=== PATIENT | male | born 1965 | race Caucasian/White ===

== ENCOUNTER 2017-06-22 11:41 | Emergency (ER) | payer SELFPAY ==
--- NOTE | 2017-06-22 12:59 | ER Document Report ---
HPI - HPI Patient complains to provider of: cut left hand Onset: Other - SUPPORT ENGINEER Pain Level: 2 Context: 52 yo male opening can with knife that slipped and cut left mid palm, also injured right hand and thinks that he has some broken bones. Tetanus is current. Associated Symptoms: None Exacerbated by: Movement Relieved by: Denies - ROS ROS below otherwise negative: Yes Systems Reviewed and Negative: Yes All other systems reviewed and negative - MUSCULOSKELETAL Musculoskeletal: REPORTS: Extremity pain - left and right hand Past Medical History - General Information source: Patient - Social History Smoking Status: Current Every Day Smoker Chew tobacco use (# tins/day): No Frequency of alcohol use: Heavy Drug Abuse: None Lives with: Family Family History: Other - adopted Patient has suicidal ideation: No Patient has homicidal ideation: No Pulmonary Medical History: Reports: Hx Bronchitis Renal/ Medical History: Denies: Hx Peritoneal Dialysis GI Medical History: Reports: Hx Gastroesophageal Reflux Disease, Hx Hepatitis - dx 1997 Musculoskeltal Medical History: Reports Hx Arthritis, Reports Hx Musculoskeletal Trauma Psychiatric Medical History: Reports: Hx Attention Deficit Hyperactivity Disorder Traumatic Medical History: Reports: Hx Fractures - rib, facial orbital bone Infectious Medical History: Reports: Hx Hepatitis - dx 1997 Past Surgical History: Reports: Hx Orthopedic Surgery - facial reconstruction, right 5th finger, Hx Tonsillectomy - Immunizations Immunizations up to date: Yes Hx Diphtheria, Pertussis, Tetanus Vaccination: Yes - 2011 Vertical Provider Document - CONSTITUTIONAL Agree With Documented VS: Yes Exam Limitations: No Limitations General Appearance: No Apparent Distress - INFECTION CONTROL TRAVEL OUTSIDE OF THE [place] IN LAST 30 DAYS: No - HEENT HEENT: Normocephalic - NECK Neck: Supple - MUSCULOSKELETAL/EXTREMETIES Musculoskeletal/Extremeties: MAEW, FROM - no rotational deviation right hand fist,, Tender - distal 3rd, 4th MC, swelling and bruising., Eccymosis - right hand. Notes: left mid jimenez surface with 3 mm angled puncture, no swelling, 2mm deep, not into any deep structures, explored with q tip - NEURO Level of Consciousness: Awake, Alert Motor/Sensory: No Motor Deficit, No Sensory Deficit - DERM Integumentary: Warm, Dry, Laceration - see above Course - Re-evaluation Re-evalutation: 06/22/17 fractured distal 3,4th right MC per radiologist - Vital Signs Vital signs: Temp Pulse Resp BP Pulse Ox 97.7 F 83 16 143/85 H 06/22/17 11:45 06/22/17 11:45 06/22/17 11:45 06/22/17 11:45 Procedures - Immobilization Right Hand Time completed: 14:55 Pre-Proc Neuro Vasc Exam: Normal Immobilizer type: Volar splint Performed by: PCT Post-Proc Neuro Vasc Exam: Normal Alignment checked and good: Yes Discharge - Discharge Clinical Impression: right 3rd and 4th distal MC fx Stab wound of left hand Qualifiers: Encounter type: initial encounter Qualified Code(s): S61.412A - Laceration without foreign body of left hand, initial encounter Condition: Good Disposition: HOME, SELF-CARE Instructions: Acetaminophen, Antibiotic Ointment Protection ([facility]), Fractured Metacarpal ([facility]), Use of [id number] Ibuprofen ([facility]), Soap Cleansing ([facility]) , Splint Precautions ([facility]), Temporary Splint ([facility]) Additional Instructions: splint the right magana see dr. ac, call for appointment this week Clean the left hand wound with soap and water daily If there are any signs of infection in the left hand which is redness swelling heat or pus you need to be seen immediately Referrals: LEROY AC, DO [ACTIVE STAFF] - Follow up as needed
--- NOTE | 2017-06-22 14:58 | RADIOLOGY REPORT (SQ) ---
EXAM DESCRIPTION: HAND RIGHT 3 VIEWS COMPLETED DATE/TIME: 06/22/2017 2:46 pm REASON FOR STUDY: RT HAND PAIN COMPARISON: None. EXAM PARAMETERS: NUMBER OF VIEWS: Three views. TECHNIQUE: AP, lateral and oblique radiographic images acquired of the right hand. LIMITATIONS: None. FINDINGS: MINERALIZATION: Normal. BONES: Deformity of the left fifth metacarpal bone related to prior old remote trauma. Minimal to v rah slight displaced fracture at the head of the third metacarpal bone. JOINTS: No effusions. SOFT TISSUES: Soft tissue swelling. No foreign body. OTHER: No other significant finding. IMPRESSION: 1. Soft tissue swelling. Correlation is suggested. 2 Deformity of the fifth metacarpal bone related prior remote trauma. 3. Minimal to very slight displaced fracture suggested at the head of the third metacarpal bone. TECHNICAL DOCUMENTATION: JOB ID: [id number] [employer]- All Rights Reserved Reading location - IP/workstation name: [email or web address]
[2017-06-22 15:21] VITALS: BP 140/87
== END 2017-06-22 15:20 | disposition home or self-care (01) ==
LOC: ER 11:41
DX: S62.302A Unspecified fracture of third metacarpal bone, right hand, initial encounter for closed fracture (principal); S62.304A Unspecified fracture of fourth metacarpal bone, right hand, initial encounter for closed fracture; W22.09XA Striking against other stationary object, initial encounter; S61.412A Laceration without foreign body of left hand, initial encounter; W26.0XXA Contact with knife, initial encounter; Y93.89 Activity, other specified; F17.200 Nicotine dependence, unspecified, uncomplicated
CPT/HCPCS: 99283